=== PATIENT | female | born 1975 | race Caucasian/White ===

== ENCOUNTER 2017-05-05 07:36 | Emergency (ER) | payer BC, SELFPAY ==
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
[2017-05-05 08:38] LABS: CHLORIDE,CL 107 mmol/L (98-107); SODIUM,NA 142 mmol/L (136-145)
[2017-05-05] MEDS ORDERED: cefTRIAXone 1 GM Vial IM ONE (08:49)
[2017-05-05] MEDS ORDERED: methylPREDNISolone Acetate 80 MG/ML SDV IM ONE (08:50)
== END 2017-05-05 09:19 | disposition home or self-care (01) ==
LOC: LL.ED 07:36
DX: J03.90 Acute tonsillitis, unspecified (principal); K21.9 Gastro-esophageal reflux disease without esophagitis; M15.0 Primary generalized (osteo)arthritis; F41.8 Other specified anxiety disorders; F17.210 Nicotine dependence, cigarettes, uncomplicated; Z71.6 Tobacco abuse counseling
CPT/HCPCS: 36415; 80053; 85025; 86308; 87081; 87430; 96372; 99284; J0696; J1040

== ENCOUNTER 2019-08-11 16:38 | Observation (INO) | payer BC ==
[2019-08-11] MEDS ORDERED: Acetaminophen 325 MG Tab PO ONE (16:41)
--- NOTE | 2019-08-11 16:52 | EDM.PDOC ---
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 hypertension and discontinuation of her previous medications by her regular provider as above by the patient's history. Blood pressures somewhat elevated, however variable during emergency room care. Observe for now. Close follow-up by regular providers at discharge. Qualifiers: Hypertension type: essential hypertension Qualified Code(s): I10 - Essential (primary) hypertension - Problem List Review Problem List Initiated/Reviewed/Updated: Yes - My Orders Last 24 Hours: My Active Orders 08/11/19 16:40 CULTURE STREP A CONFIRMATION [RM] Stat STREP SCRN A RAPID W CULT CONF [RM] Stat 08/11/19 16:41 Resuscitation Status Routine 08/11/19 16:42 Communication Order [RC] ROUTINE Oxygen Therapy, ED [RC] PRN Pulse Oximetry [RC] CONTINUOUS Up With Assistance [RC] ASDIRECTED Chest 2V [CR] Stat CULTURE SPUTUM + SMEAR [RM] Urgent Blood Culture x2 Reflex Set [OM.PC] Stat Obtain Past Medical Record [OM.PC] Stat 08/11/19 16:48 CULTURE BLOOD [BC] Stat MAGNESIUM [CHEM] Routine 08/11/19 17:08 CULTURE BLOOD [BC] Stat 08/11/19 17:19 Cardiac Monitoring [RC] . DIRECTED Peripheral IV Care [RC] . DIRECTED Sodium Chloride 0.9% [Saline Flush] 10 ml FLUSH ASDIRECTED PRN Peripheral IV Insertion Adult [OM.PC] Routine 08/11/19 Breakfast Nothing Per Oral Diet [DIET] - Assessment/Plan Admission H&P: Please use this note as an admission H&P Last 24 Hours: My Active Orders 08/11/19 16:40 CULTURE STREP A CONFIRMATION [RM] Stat STREP SCRN A RAPID W CULT CONF [RM] Stat 08/11/19 16:41 Resuscitation Status Routine 08/11/19 16:42 Communication Order [RC] ROUTINE Oxygen Therapy, ED [RC] PRN Pulse Oximetry [RC] CONTINUOUS Up With Assistance [RC] ASDIRECTED Chest 2V [CR] Stat CULTURE SPUTUM + SMEAR [RM] Urgent Blood Culture x2 Reflex Set [OM.PC] Stat Obtain Past Medical Record [OM.PC] Stat 08/11/19 16:48 CULTURE BLOOD [BC] Stat MAGNESIUM [CHEM] Routine 08/11/19 17:08 CULTURE BLOOD [BC] Stat 08/11/19 17:19 Cardiac Monitoring [RC] . DIRECTED Peripheral IV Care [RC] . DIRECTED Sodium Chloride 0.9% [Saline Flush] 10 ml FLUSH ASDIRECTED PRN Peripheral IV Insertion Adult [OM.PC] Routine 08/11/19 Breakfast Nothing Per Oral Diet [DIET] Assessment:: As above Plan: As above. Extensive precautions were given to the patient and her significant other, who are in agreement with the treatment plan. She will be placed in observation status on telemetry as above. 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
[2019-08-11] MEDS ORDERED: Sodium Chloride 0.9% 10 ML Syringe FLUSH PRN (17:19)
[2019-08-11] MEDS ORDERED: Famotidine 20 MG/2 ML SDV IVPUSH ONE (17:19)
[2019-08-11] MEDS ORDERED: Potassium Chloride 20 MEQ Tab.ER PO ONE (17:20)
[2019-08-11 17:21] LABS: CHLORIDE,CL 98 mmol/L (98-107); SODIUM,NA 140 mmol/L (136-145)
[2019-08-11] MEDS ORDERED: Albuterol/Ipratropium 3.0-0.5 MG/3 ML Neb Soln NEB PRN (18:08)
[2019-08-11] MEDS ORDERED: Temazepam 15 MG Cap PO PRN (18:08)
[2019-08-11] MEDS ORDERED: Acetaminophen 325 MG Tab PO PRN (18:08)
[2019-08-11] MEDS ORDERED: Albuterol 0.083% 2.5 MG/3 ML Neb Soln NEB PRN (18:08)
[2019-08-11] MEDS ORDERED: Lactated Ringers 1,000 ML IV ONE (18:10)
[2019-08-11] MEDS ORDERED: Ketorolac 15 MG/ML SDV IVPUSH PRN (18:11)
[2019-08-11] MEDS ORDERED: Phenol 1.4% Oral Spray 177 ML Bottle MUCMEM PRN (18:14)
[2019-08-11] MEDS: Sodium Chloride 0.9% 10 ML Syringe FLUSH SCH (18:19)
[2019-08-11] MEDS: Pseudoephedrine 30 MG Tab PO SCH (19:51)
[2019-08-11] MEDS: Dextromethorphan/guaiFENesin 600-30 MG Tab.ER PO SCH (19:51)
[2019-08-11] MEDS ORDERED: Topiramate 25 MG Tab PO SCH (20:00)
[2019-08-11] MEDS: Lactated Ringers 1,000 ML IV SCH (20:33)
[2019-08-11] MEDS ORDERED: Nicotine 21 MG/24 Hr Patch TRDERM SCH (21:00)
[2019-08-11] MEDS: Potassium Chloride 20 MEQ Tab.ER PO SCH (21:31)
[2019-08-12] MEDS: Sodium Chloride 0.9% 10 ML Syringe FLUSH SCH ×2 (05:53→17:21)
[2019-08-12] MEDS: Lactated Ringers 1,000 ML IV SCH (05:54)
[2019-08-12 07:12] LABS: CHLORIDE,CL 106 mmol/L (98-107); SODIUM,NA 145 mmol/L (136-145)
[2019-08-12] MEDS: Dextromethorphan/guaiFENesin 600-30 MG Tab.ER PO SCH ×2 (07:26→16:59)
[2019-08-12] MEDS: Famotidine 20 MG Tab PO SCH ×2 (07:28→16:59)
[2019-08-12] MEDS: Potassium Chloride 20 MEQ Tab.ER PO SCH ×3 (07:28→17:21)
[2019-08-12] MEDS: Gabapentin 400 MG Cap PO SCH ×3 (07:28→16:59)
[2019-08-12] MEDS: Pseudoephedrine 30 MG Tab PO SCH ×3 (07:28→16:54)
[2019-08-12] MEDS ORDERED: Venlafaxine 75 MG Cap.ER PO SCH (08:00)
[2019-08-12] MEDS: Potassium Chloride Riders 10 MEQ in Premix Bag 1 BAG IV SCH ×5 (08:16→13:40)
[2019-08-12] MEDS: busPIRone 15 MG Tab PO SCH ×2 (09:33→16:59)
[2019-08-12] MEDS: Trospium 20 MG Tab PO SCH ×2 (09:33→16:59)
[2019-08-12] MEDS ORDERED: Potassium Chloride 20 MEQ Tab.ER PO ONE (14:00)
--- NOTE | 2019-08-12 17:41 | PCM.DCSUM1 ---
Discharge Summary - Hospital Course Brief History: Patient admitted for treatment of significant hypokalemia. Concommitant complaints suggestive of respiratory tract infection. Diagnosis: Stroke: No - Discharge Data Discharge Date: 08/12/19 Discharge Disposition: Home, Self-Care 01 Condition: Good - Referral to Home Health Primary Care Physician: Nicole Cedeño MD - Discharge Diagnosis/Problem(s) (1) Hypokalemia SNOMED Code(s): 40507695 ICD Code: E87.6 - HYPOKALEMIA Status: Acute Priority: High Current Visit: Yes Onset Date: 08/11/19 Problem Details: Known previous history of hypokalemia, which was previously related to her hydrochlorothiazide therapy. Initial dose of potassium chloride given in the emergency room. No direct etiology of patient's severe hypokalemia patient denying any recent diarrhea, bowel cleansing, emesis, bulimia, etc. PO and IV replacement corrected level to 3.7 Will have patient continue PO supplement daily and follow up Thursday with primary for k recheck and continued planning (2) URI (upper respiratory infection) SNOMED Code(s): 74822758 ICD Code: J06.9 - ACUTE UPPER RESPIRATORY INFECTION, UNSPECIFIED Status: Acute Priority: High Current Visit: Yes Onset Date: 08/11/19 Problem Details: Probable mild viral bronchitis and pharyngitis. Symptomatic relief for now. No indication for antibiotic therapy despite borderline leukocytosis. Blood cultures 2 were collected. Sputum specimen could not be obtained. Patient will need a work excuse at discharge. Qualifiers: URI type: unspecified viral URI Qualified Code(s): J06.9 - Acute upper respiratory infection, unspecified (3) Hypertension SNOMED Code(s): 85051838 ICD Code: I10 - ESSENTIAL (PRIMARY) HYPERTENSION Status: Chronic Priority : Medium Current Visit: Yes Problem Details: Patient with previous history of hypertension and discontinuation of her previous medications by her regular provider as above by the patient's history. Blood pressures somewhat elevated, however variable during emergency room care. Observe for now. Close follow-up by regular providers at discharge. Qualifiers: Hypertension type: essential hypertension Qualified Code(s): I10 - Essential (primary) hypertension (4) Mixed anxiety depressive disorder SNOMED Code(s): 003077099 ICD Code: F41.8 - OTHER SPECIFIED ANXIETY DISORDERS Status: Chronic Priority: Medium Current Visit: No Problem Details: Stable by patient history. Continue to observe closely by medical providers. (5) Osteoarthritis SNOMED Code(s): 760108906 ICD Code: M19.90 - UNSPECIFIED OSTEOARTHRITIS, UNSPECIFIED SITE Status: Chronic Priority: Medium Current Visit: No Problem Details: Stable by history with a nonspecific arthralgias today secondary to current infection. Observe for now. Symptomatic relief as per discharge instructions. Qualifiers: Osteoarthritis location: multiple joints Osteoarthritis type: primary Qualified Code(s): M15.0 - Primary generalized (osteo)arthritis (6) Peptic reflux disease SNOMED Code(s): 021080572 ICD Code: K21.9 - GASTRO-ESOPHAGEAL REFLUX DISEASE WITHOUT ESOPHAGITIS Status: Chronic Priority: Medium Current Visit: No Problem Details: Stable by history (7) Tobacco abuse counseling SNOMED Code(s): 340543203, 692389988, 245793025 ICD Code: Z71.6 - TOBACCO ABUSE COUNSELING Status: Chronic Priority: Medium Current Visit: No Problem Details: Tobacco cessation was again strongly encouraged with information provided at discharge. - Patient Summary/Data Hospital Course: Patient initially started on oral potassium replacement therapy. Given her fever/cough/temp elevation workup included blood cultures/rapid strep/influenza screen. Latter two were negative. No growth so far for blood cultures. Patient 's cough improved and fever resolved by time of discharge. IV potassium added today due to persistently low level when rechecked. Potassium level at 1700 tonight now within normal range, 3.7 Patient wishes to go home at this time. Given improvement of potassium level and resolution of fever/improved URI complaints, it was felt that she could be discharged with close follow up by primary provider. Precautions reviewed prior to discharge. - Patient Instructions Diet: Usual Diet as Tolerated Activity: As Tolerated Driving: May Drive Today Showering/Bathing: May Shower Other/Special Instructions: 1. Take one tablet of potassium daily (20meq) starting tomorrow. Get potassium level rechecked at your primary provide's office Thursday (Thursday at latest). Plan any adjustment of the potassium dose with your primary provider depending on lab results. We were going to do a 24 hour urine study here at the hospital to measure urinary potassium loss. Since you are being discharged now, do that through your primary provider. Recommend observing your blood pressure trends. You appear to become more elevated in the late afternoons around 4-5pm. 2. Follow up again with your regular provider in 7 days as recommended with repeat basic metabolic panel at follow- up. Bring these discharge instructions with you to your visits. 3. Tylenol 650 mg by mouth every 4 hours and/or OTC ibuprofen 2-3 tabs by mouth every 6 hours with food as directed./needed. You may stagger these medications for 48- 72 hours only, which essentially means that you are receiving a pain medication about every 2 hours. 4. Hygiene issues as discussed. 5. Stop all tobacco use ARIN as directed/per provided information and consider contacting [employer] , etc.. 6. Work excuse- See Form. 7. Immediately after this visit verify that your cellular telephone's voicemail has been activated and is empty. Also verify that your home telephone's answering machine is operating properly and has space to receive messages. Note that it is sometimes necessary for us to be able to contact you at a later date to discuss your medical care. 8. Please remember that we are ALWAYS here for you and want to answer any questions you may have. Feel free to call the hospital any time and we call you back ARIN. 9. Listerine gargles four times per day, after meals and at bedtime, with additional Chloroseptic lozenges or spray as needed for 10 days and/or until symptoms resolve. - Discharge Plan *PRESCRIPTION DRUG MONITORING PROGRAM REVIEWED*: Not Applicable *COPY OF PRESCRIPTION DRUG MONITORING REPORT IN PATIENT KO: Not Applicable Prescriptions/Med Rec: Potassium Chloride 20 meq PO ASDIRECTED #20 [email or web address] Home Medications: Home Meds Famotidine [Pepcid] 20 mg PO BID 08/11/19 [History] Gabapentin [Neurontin] 400 mg PO TID 08/11/19 [History] Galcanezumab-Gnlm [Emgality Syringe] 1 injection SUBCUT Q30D 08/11/19 [History] Naproxen Sodium [Aleve] 1 - 2 tab PO ASDIRECTED PRN 08/11/19 [History] SUMAtriptan [Imitrex] 100 mg PO ASDIRECTED PRN 08/11/19 [History] Solifenacin [Vesicare] 5 mg PO DAILY 08/11/19 [History] Topiramate [Topamax] 50 mg PO BEDTIME 08/11/19 [History] Venlafaxine HCl [Venlafaxine ER] 150 mg PO DAILY 08/11/19 [History] busPIRone [Buspar] 10 mg PO BID 08/11/19 [History] hydrOXYzine pamoate [Hydroxyzine Pamoate] 50 mg PO TID PRN 08/11/19 [History] methocarbamoL [Methocarbamol] 500 mg PO TID 08/11/19 [History] Phenol [Chloraseptic Throat [place]] 1 ml MUCMEM Q2H PRN bottle 08/12/19 [Rx] Potassium Chloride 20 meq PO ASDIRECTED #20 tab.er.prt 08/12/19 [Rx] Forms: ED Department Discharge, ED Return to Work/School Form Referrals: Nicole Cedeño MD [Primary Care Provider] - - Discharge Summary/Plan Comment DC Time >30 min.: No - General Info Date of Service: 08/12/19 Admission Dx/Problem (Free Text: Hypokalemia, fever, URI complaints Subjective Update: Patient feels better. URI complaints improving. Eating/drinking well. Requests to go home. Functional Status: Reports: Pain Controlled, Tolerating Diet, Ambulating, Urinating. Denies: New Symptoms - Review of Systems General: Reports: No Symptoms HEENT: Reports: Sinus Congestion (mild) Pulmonary: Reports: Cough (mild). Denies: Shortness of Breath, Pleuritic Chest Pain, Hemoptysis, Wheezing Cardiovascular: Reports: No Symptoms. Denies: Chest Pain Gastrointestinal: Reports: No Symptoms Genitourinary: Reports: No Symptoms Musculoskeletal: Reports: No Symptoms Skin: Reports: No Symptoms Neurological: Reports: No Symptoms Psychiatric: Reports: No Symptoms - Patient Data Vitals - Most Recent: Last Vital Signs Temp 36.4 C 08/12/19 16:00 Pulse 80 08/12/19 16:00 Resp 14 08/12/19 16:00 BP 148/86 H 08/12/19 16:00 Pulse Ox 98 08/12/19 16:00 Weight - Most Recent: 91.263 kg I&O - Last 24 hours: Intake & Output 08/12/19 08/12/19 08/12/19 06:59 14:59 22:59 Intake Total 2440 1650 3774 Output Total 1200 800 Balance 1240 1650 2974 Lab Results - Last 24 hrs: Laboratory Results - last 24 hr 08/12/19 08/12/19 08/12/19 Range/Units 06:47 06:47 16:55 WBC 6.6 (4.0-10.2) K/uL RBC 4.33 (3.77-5.09) M/uL Hgb 13.5 (11.7-15.5) g/dL Hct 40.1 (34.0-46.0) % MCV 92.6 (84.0-98.0) fL MCH 31.2 (28.2-33.3) pg MCHC 33.7 (31.7-36.0) g/dL RDW 13.9 (11.2-14.1) % Plt Count 329 (150-350) K/uL Neut % (Auto) 53.0 (45.0-80.0) % Lymph % (Auto) 35.3 (10.0-50.0) % [place] % (Auto) 9.7 (2.0-14.0) % Eos % (Auto) 1.5 (0.0-5.0) % Baso % (Auto) 0.5 (0.0-2.0) % Neut # (Auto) 3.48 (1.40-7.00) K/uL Lymph # (Auto) 2.32 (0.50-3.50) K/uL [place] # (Auto) 0.64 (0.00-1.00) K/uL Eos # (Auto) 0.10 (0.00-0.50) K/uL Baso # (Auto) 0.03 (0.00-0.20) K/uL Sodium 145 (136-145) mmol/L Potassium 2.7 L* 3.7 (3.5-5.1) mmol/L Chloride 106 (98-107) mmol/L Carbon Dioxide 28.4 (21.0-32.0) mmol/L BUN 8 (7-18) mg/dL Creatinine 0.90 (0.51-1.17) mg/dL Est Cr Clr Drug Dosing 71.78 mL/min Estimated GFR (MDRD) > 60 mL/min Glucose 94 (74-106) mg/dL Calcium 8.7 (8.5-10.1) mg/dL Total Bilirubin 0.2 (0.2-1.0) mg/dL AST 22 (15-37) U/L ALT 21 (12-78) U/L Alkaline Phosphatase 86 (46-116) IU/L Total Protein 6.9 (6.4-8.2) g/dL Albumin 3.1 L (3.4-5.0) g/dL [facility] Results - Last 24 hrs: Microbiology 08/11/19 17:08 Aerobic Blood Culture - Preliminary Blood - Venous - Lab Draw NO GROWTH AFTER 1 DAY Anaerobic Blood Culture - Preliminary NO GROWTH AFTER 1 DAY 08/11/19 16:48 Aerobic Blood Culture - Preliminary Blood - Venous NO GROWTH AFTER 1 DAY Anaerobic Blood Culture - Preliminary NO GROWTH AFTER 1 DAY 08/11/19 18:08 Stool Occult Blood ([facility]) - Final Stool / Feces NEGATIVE OCCULT BLOOD REFERENCE RANGE: NEGATIVE 08/11/19 16:40 Influenza Type A Antigen Screen - Final Nasal, Right NEGATIVE INFLUENZA A VIRUS AG REFERENCE RANGE: NEGATIVE Influenza Type B Antigen Screen - Final NEGATIVE INFLUENZA B VIRUS AG REFERENCE RANGE: NEGATIVE 08/11/19 16:40 Group A Streptococcus Rapid Screen - Final Throat NEGATIVE STREP A SCREEN REFERENCE RANGE: NEGATIVE Med Orders - Current: Current Medications Acetaminophen (Tylenol) 650 mg PO Q4H PRN PRN Reason: Pain/Fever Last Admin: 08/12/19 08:29 Dose: 650 mg Albuterol (Proventil Neb Soln) 2.5 mg NEB Q2H PRN PRN Reason: Dyspnea Albuterol/Ipratropium (Duoneb 3.0-0.5 Mg/3 Ml) 3 ml NEB Q4HRRT PRN PRN Reason: Dyspnea Buspirone HCl (Buspar) 10 mg PO BID [facility] Last Admin: 08/12/19 16:59 Dose: 10 mg Famotidine (Pepcid) 20 mg PO BID [facility] Last Admin: 08/12/19 16:59 Dose: 20 mg Gabapentin (Neurontin) 400 mg PO TID [facility] Last Admin: 08/12/19 16:59 Dose: 400 mg Guaifenesin/Dextromethorphan (Mucinex Dm Er 600-30 Mg) 1 tab PO BID [facility] Last Admin: 08/12/19 16:59 Dose: 1 tab Lactated Ringer's (Ringers, Lactated) 1,000 mls @ 100 mls/hr IV ASDIRECTED [facility] Last Admin: 08/12/19 05:54 Dose: 100 mls/hr Ketorolac Tromethamine (Toradol) 15 mg IVPUSH Q6H PRN PRN Reason: Pain/Fever Stop: 08/13/19 08:00 Miscellaneous Information (Remove Patch) 1 ea TRDERM Q24H [facility] Last Admin: 08/11/19 21:36 Dose: Not Given Nicotine (Habitrol) 21 mg TRDERM BEDTIME [facility] Last Admin: 08/11/19 21:34 Dose: 21 mg Phenol/Menthol (Chloraseptic Throat [place]) 1 ml MUCMEM Q2H PRN PRN Reason: Sore Throat Potassium Chloride (Klor-Con M20) 40 meq PO TID [facility] Last Admin: 08/12/19 17:21 Dose: Not Given Pseudoephedrine HCl (Sudogest) 30 mg PO QID [facility] Last Admin: 08/12/19 16:54 Dose: 30 mg Sodium Chloride (Saline Flush) 10 ml FLUSH ASDIRECTED PRN PRN Reason: Keep Vein Open Sodium Chloride (Saline Flush) 10 ml FLUSH Q12H [facility] Last Admin: 08/12/19 17:21 Dose: Not Given Temazepam (Restoril) 15 mg PO BEDTIME PRN PRN Reason: Insomnia Last Admin: 08/11/19 19:51 Dose: 15 mg Topiramate (Topamax) 50 mg PO BEDTIME [facility] Last Admin: 08/11/19 21:31 Dose: 50 mg Trospium (Sanctura) 20 mg PO BID [facility] Last Admin: 08/12/19 16:59 Dose: 20 mg Venlafaxine HCl (Effexor Xr) 150 mg PO DAILY [facility] Last Admin: 08/12/19 07:26 Dose: 150 mg Discontinued Medications Acetaminophen (Tylenol) 650 mg PO ONETIME ONE Stop: 08/11/19 16:42 Last Admin: 08/11/19 17:10 Dose: 650 mg Famotidine (Pepcid) 40 mg IVPUSH ONETIME ONE Stop: 08/11/19 17:20 Last Admin: 08/11/19 18:18 Dose: 40 mg Lactated Ringer's (Ringers, Lactated) 1,000 mls @ 999 mls/hr IV .BOLUS ONE Stop: 08/11/19 19:10 Last Admin: 08/11/19 19:18 Dose: 999 mls/hr Potassium Chloride 10 meq/ (Premix) 50 mls @ 50 mls/hr IV Q1H MICKEY Stop: 08/12/19 12:29 Last Admin: 08/12/19 13:40 Dose: 50 mls/hr Potassium Chloride (Klor-Con M20) 40 meq PO ONETIME ONE Stop: 08/11/19 17:21 Last Admin: 08/11/19 18:18 Dose: 40 meq Potassium Chloride (Klor-Con M20) 20 meq PO ONETIME ONE Stop: 08/12/19 14:01 Last Admin: 08/12/19 13:40 Dose: 20 meq - Exam General: Reports: Alert, Oriented, Cooperative, No Acute Distress HEENT: Reports: Pupils Equal, Pupils Reactive, EOMI, Mucous Membr. Moist/Center Line Neck: Reports: Supple Lungs: Reports: Clear to Auscultation, Normal Respiratory Effort Cardiovascular: Reports: Regular Rate, Regular Rhythm GI/Abdominal Exam: Normal Bowel Sounds, Soft, Non-Tender, No Distention (Female) Exam: Deferred Rectal (Female) Exam: Deferred Back Exam: Reports: Normal Inspection Extremities: Normal Inspection, Normal Capillary Refill Skin: Reports: Warm, Dry Neurological: Reports: No New Focal Deficit Psy/Mental Status: Reports: Alert, Normal Affect, Normal Mood
== END 2019-08-12 18:15 | disposition home or self-care (01) ==
LOC: LL.ED 16:38 → LL.MS 17:21
PROVIDERS: ADMIT Family Medicine; ATTEND Family Medicine
DX: E87.6 Hypokalemia (principal); J06.9 Acute upper respiratory infection, unspecified; I10 Essential (primary) hypertension; F41.8 Other specified anxiety disorders; K21.9 Gastro-esophageal reflux disease without esophagitis; M10.9 Gout, unspecified; G43.909 Migraine, unspecified, not intractable, without status migrainosus; K44.9 Diaphragmatic hernia without obstruction or gangrene; M15.0 Primary generalized (osteo)arthritis; F17.210 Nicotine dependence, cigarettes, uncomplicated; Z71.6 Tobacco abuse counseling; Z79.899 Other long term (current) drug therapy
CPT/HCPCS: 36415; 71046; 80053; 82272; 83605; 83735; 84132; 85025; 87040; 87081; 87430; 87804; 96361; 96365; 96366; 96375; 99284-25; A9270-GY; G0378; J3480; J3490; J7120

== ENCOUNTER 2020-05-05 12:15 | Emergency (ER) | payer BC ==
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
== END 2020-05-05 13:10 | disposition home or self-care (01) ==
LOC: LL.ED 12:15
DX: S93.402A Sprain of unspecified ligament of left ankle, initial encounter (principal); I10 Essential (primary) hypertension; F41.9 Anxiety disorder, unspecified; F32.9 Major depressive disorder, single episode, unspecified; E66.9 Obesity, unspecified; G62.9 Polyneuropathy, unspecified; Z79.899 Other long term (current) drug therapy; X58.XXXA Exposure to other specified factors, initial encounter
CPT/HCPCS: 73610-LT; 99283

== ENCOUNTER 2021-07-21 10:07 | Emergency (ER) | payer BC ==
[2021-07-21 10:55] LABS: RESPIRATORY SYNCYTIAL VIR NAA NEGATIVE (NEGATIVE)
[2021-07-21 10:56] LABS: CORONAVIRUS COVID-19 NAA POSITIVE (NEGATIVE)
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
== END 2021-07-21 11:15 | disposition home or self-care (01) ==
LOC: LL.ED 10:07
DX: U07.1 COVID-19 (principal); I10 Essential (primary) hypertension; E66.9 Obesity, unspecified; Z79.899 Other long term (current) drug therapy
CPT/HCPCS: 0241U; 99283; 99284